=== PATIENT | male | born 1935 | race Caucasian/White ===

== ENCOUNTER 2016-11-05 09:58 | Emergency (ER) | payer MEDICARE ==
--- NOTE | 2016-11-05 10:35 | ER Document Report ---
ED General - General Chief Complaint: Other Stated Complaint: ABDOMINAL LEAK Time Seen by Provider: 11/05/16 10:11 Mode of Arrival: Ambulatory Information source: Patient TRAVEL OUTSIDE OF THE [place] IN LAST 30 DAYS: No - HPI Onset: Other - UNSURE Quality of pain: No pain Associated symptoms: None Exacerbated by: Denies Relieved by: Denies Recently seen / treated by doctor: Yes - SONOGRAM YESTERDAY (ROUTINE SURVEILLANCE) - Related Data Allergies/Adverse Reactions: No Known Allergies Allergy (Verified 11/05/16 10:01) Past Medical History - General Information source: Patient - Social History Smoking Status: Unknown if Ever Smoked Cigarette use (# per day): No Chew tobacco use (# tins/day): No Frequency of alcohol use: Occasional Drug Abuse: None Lives with: Spouse/Significant other Family History: Reviewed & Not Pertinent Patient has suicidal ideation: No Patient has homicidal ideation: No - Past Medical History Cardiac Medical History: Reports: Hx Hypertension, Other - AAA Pulmonary Medical History: Reports: None EENT Medical History: Reports: None Neurological Medical History: Reports: None Endocrine Medical History: Reports: None Renal/ Medical History: Reports: None. Denies: Hx Peritoneal Dialysis Malignancy Medical History: Reports None GI Medical History: Reports: None Musculoskeltal Medical History: Reports None Psychiatric Medical History: Reports: None Past Surgical History: Reports: Hx Herniorrhaphy, Hx Vascular Surgery - ENDOVASCULAR AAA REPAIR 2012 Review of Systems - Review of Systems Constitutional: No symptoms reported EENT: No symptoms reported Cardiovascular: No symptoms reported Respiratory: No symptoms reported Gastrointestinal: No symptoms reported Genitourinary: No symptoms reported Musculoskeletal: No symptoms reported Skin: No symptoms reported Neurological/Psychological: No symptoms reported Physical Exam - Vital signs Vitals: Temp Pulse Resp BP Pulse Ox 97.8 F 55 L 16 139/58 H 98 11/05/16 10:01 11/05/16 10:01 11/05/16 10:01 11/05/16 10:01 11/05/16 10:01 Interpretation: Normal. No: Hypotensive, Tachycardic, Tachypneic - General General appearance: Appears well, Alert In distress: None - HEENT Head: Normocephalic Eyes: Normal Conjunctiva: Normal Ears: Normal Nasal: Normal Mouth/Lips: Normal Mucous membranes: Normal Neck: Normal - Respiratory Respiratory status: No respiratory distress - Cardiovascular Rhythm: Regular - Abdominal Inspection: Normal Distension: No distension - Extremities General upper extremity: Normal inspection General lower extremity: Normal inspection. No: Edema - Neurological Neuro grossly intact: Yes Cognition: Normal Orientation: AAOx4 - Psychological Associated symptoms: Normal affect, Normal mood - Skin Skin Temperature: Warm Skin Moisture: Dry Skin Color: Normal Skin Turgor: Elastic Course - Re-evaluation Re-evalutation: 11/05/16 17:41 Late entry: Was reevaluated approximately 20 minutes prior to his departure. He remained asymptomatic with no complaints. Vital signs remained stable. He appears stable for transport to higher level of care. - Vital Signs Vital signs: Temp Pulse Resp BP Pulse Ox 97.8 F 55 L 18 139/58 H 100 11/05/16 10:01 11/05/16 10:01 11/05/16 13:02 11/05/16 13:02 11/05/16 13:02 - Laboratory Result Diagrams: 11/05/16 10:27 11/05/16 10:27 Laboratory results interpreted by me: 11/05/16 10:27 Potassium 5.8 H BUN 25 H Est GFR (Non-Af Amer) 58 L AST 16 L - Diagnostic Test Radiology reviewed: Image reviewed, Reports reviewed - Consults DR. VILLAREAL Time consulted: 10:50 Reason for consultation: 11/05/16 12:07 ADVICE RE: IMAGING STUDIES & REFERRAL DR. LATIF Time consulted: 11:20 Reason for consultation: 11/05/16 12:08 WILL MAKE ARRANGEMENTS FOR TRANSFER Discharge - Discharge Clinical Impression: S/P AAA (abdominal aortic aneurysm) repair Endoleak post endovascular aneurysm repair Qualifiers: Encounter type: initial encounter Qualified Code(s): T82.330A - Leakage of aortic (bifurcation) graft (replacement), initial encounter Condition: Good Disposition: [facility]
[2016-11-05 10:47] LABS: ABSOLUTE BASOPHILS # (AUTO) 0.1 10^3/uL (0.0-0.2); ABSOLUTE EOSINOPHILS # (AUTO) 0.2 10^3/uL (0.0-0.6); ABSOLUTE MONOCYTES (AUTO) 0.5 10^3/uL (0.1-1.4); ABSOLUTE NEUT (AUTO) 5.7 10^3/uL (1.7-8.2); BASOPHILS % (AUTO) 0.7 % (0-2); EOSINOPHILS % (AUTO) 2.5 % (0-6); HEMATOCRIT 42.6 % (37.9-51.0); HGB HCT DIFFERENCE -0.6; LYMPHOCYTES % (AUTO) 13.9 % (13-45); MEAN CORPUSCULAR HEMOGLOBIN 29.3 pg (27.0-33.4); MEAN CORPUSCULAR HGB CONC 32.7 g/dL (32.0-36.0); MEAN CORPUSCULAR VOLUME 90 fl (80-97); MONOCYTES % (AUTO) 7.3 % (3-13); RED BLOOD COUNT 4.76 10^6/uL (4.35-5.55); RED CELL DISTRIBUTION WIDTH 13.7 % (11.5-14.0); SEGMENTED NEUTROPHILS % (AUTO) 75.6 % (42-78); WHITE BLOOD COUNT 7.5 10^3/uL (4.0-10.5)
[2016-11-05 11:01] LABS: ALANINE AMINOTRANSFERASE 28 U/L (21-72); ALBUMIN 4.1 g/dL (3.5-5.0); ALKALINE PHOSPHATASE 72 U/L (38-126); ANION GAP 9 (5-19); ASPARTATE AMINO TRANSFERASE 16 U/L (17-59); BILIRUBIN,DIRECT 0.3 mg/dL (0.0-0.4); BILIRUBIN,TOTAL 0.7 mg/dL (0.2-1.3); BLOOD UREA NITROGEN 25 mg/dL (7-20); CALCIUM 8.7 mg/dL (8.4-10.2); CARBON DIOXIDE 23 mmol/L (22-30); CHLORIDE 105 mmol/L (98-107); CREATININE RESULT 1.21 mg/dL (0.52-1.25); GLUCOSE 101 mg/dL (75-110); POTASSIUM 5.8 mmol/L (3.6-5.0); SODIUM 137.1 mmol/L (137-145); TOTAL PROTEIN 6.8 g/dL (6.3-8.2)
--- NOTE | 2016-11-05 11:15 | RADIOLOGY REPORT (SQ) ---
EXAM DESCRIPTION: CTA ABDOMEN/PELVIS W WO COMPLETED DATE/TIME: 11/05/2016 10:48 am REASON FOR STUDY: ? LEAKING GRAFT, PER ULTRASOUND DONE @ [facility] 11/04 COMPARISON: Report of leaking graft TECHNIQUE: CT scan of the abdominal aorta extending to the iliac bifurcation performed with intraven ous contrast using helical scanning technique with dynamic intravenous contrast injection. Images rev iewed with lung, soft tissue, and bone windows. Reconstructed coronal and sagittal MPR images reviewe d. All images stored on PACS. Advanced 3D imaging as volume rendering, MIPS, SSD performed? no All CT scanners at this facility use dose modulation, iterative reconstruction, and/or weight based d osing when appropriate to reduce radiation dose to as low as reasonably achievable (ALARA). [facility]: Dose Right [facility]: CareDose [facility]: Dose Right [facility]: Teradose 4D [facility]: BostInno CONTRAST TYPE AND DOSE: contrast/concentration: Isovue 370.00 mg/ml; Total Contrast Delivered: 100.0 ml; Total Saline Delivered: 90.0 ml RENAL FUNCTION: Deferred per emergency department physician LIMITATIONS: None. FINDINGS: NON-CONTRASTED IMAGING: Not performed. POST-CONTRAST IMAGING: AORTA AND VESSELS: There is an aortic stent graft. Active contrast leakage identified at the level o f the bifurcation into the limbs of the graft. Left contrast collection is 2.5 cm. Right is 1.8 cm. The left contrast collection communicates with at no extra luminal vessel extending leftward from t he aortic lumen. Overall diameter of the aorta is 6.2 x 6.2 cm. More distally the iliac limbs of the graft are widely patent without evidence for extraluminal contra st. Renal arteries SMA and celiac axis are patent. LUNG BASES: No significant findings. No nodules or infiltrates. LIVER: Normal size. No masses or dilated ducts. SPLEEN: Normal size. No focal lesions. PANCREAS: No masses. No significant calcifications. No adjacent inflammation or peripancreatic fluid collections. Pancreatic duct not dilated. GALLBLADDER: No identified stones by CT criteria. No inflammatory changes to suggest cholecystitis. ADRENAL GLANDS: No significant masses or asymmetry. RIGHT KIDNEY AND URETER: No mass, calculi or urinary tract obstruction. LEFT KIDNEY AND URETER: No mass, calculi or urinary tract obstruction. RETROPERITONEUM: No retroperitoneal adenopathy, hemorrhage or masses. BOWEL AND PERITONEAL CAVITY: No masses or inflammatory changes. No free fluid or peritoneal masses. APPENDIX: Not visualized. ABDOMINAL WALL: No masses. No hernias. BONY STRUCTURES: No significant or acute findings. 3-D IMAGING: Not performed. OTHER: No other significant finding. IMPRESSION: Contrast is seen extra luminal to the aortic stent graft in the lower abdominal aorta wi th both a right and left-sided activity area of extravasation. The contrast on the left communicates with an extra aortic vessel. The exact site of leakage is not identified. Overall diameter of the aorta is 6.2 x 6.2 cm. TECHNICAL DOCUMENTATION: JOB ID: [id number] Quality ID # [id number]: Final reports with documentation of one or more dose reduction techniques (e.g., Au tomated exposure control, adjustment of the mA and/or kV according to patient size, use of iterative reconstruction technique) 2010 [employer]- All Rights Reserved
[2016-11-05 15:19] VITALS: BP 96/65
== END 2016-11-05 15:17 | disposition short-term general hospital (02) ==
LOC: ER 09:58
DX: T82.330A Leakage of aortic (bifurcation) graft (replacement), initial encounter (principal); Z98.890 Other specified postprocedural states
CPT/HCPCS: 36415; 74174; 80053; 85025; 86850; 86900; 86901; 99285

== ENCOUNTER → 2017-07-11 | Outpatient (CLI) | payer MEDICARE, OTHER ==
--- NOTE | 2017-07-11 14:45 | RADIOLOGY REPORT (SQ) ---
EXAM DESCRIPTION: CTA ABDOMEN/PELVIS W WO COMPLETED DATE/TIME: 07/11/2017 9:56 am REASON FOR STUDY: I71.4 ABDOMINAL AORTIC ANEURYSM, WITHOUT RUPTURE I71.4 ABDOMINAL AORTIC ANEURYSM, WITHOUT RUPTURE COMPARISON: CT ABDOMEN PELVIS 11/05/2016 TECHNIQUE: CT scan of the abdominal aorta extending to the bilateral common femoral bifurcations per formed with and without intravenous contrast using helical scanning technique with dynamic intravenou s contrast injection. Images reviewed with lung, soft tissue, and bone windows. Reconstructed coronal and sagittal MPR images reviewed. All images stored on PACS. Advanced 3D imaging as volume rendering, MIPS, SSD performed? yes All CT scanners at this facility use dose modulation, iterative reconstruction, and/or weight based d osing when appropriate to reduce radiation dose to as low as reasonably achievable (ALARA). [facility]: Dose Right [facility]: CareDose [facility]: Dose Right [facility]: Teradose 4D [facility]: aWhere CONTRAST TYPE AND DOSE: contrast/concentration: Isovue 370.00 mg/ml; Total Contrast Delivered: 58.0 ml; Total Saline Delivered: 80.0 ml RENAL FUNCTION: Creatinine 1.2 LIMITATIONS: There are radiopaque embolization coils along the periphery of the infrarenal abdominal aorta which causes streak artifact. FINDINGS: NON-CONTRASTED IMAGING: No significant renal or bladder calcifications. No other significa nt organ calcifications. POST-CONTRAST IMAGING: AORTA AND VESSELS: Patient has a abdominal aortic infrarenal aneurysm treated with an endograft. Sin ce the prior exam on 11/05/2016, embolization coils have been placed along the periphery of the endogr aft at about the level of the L4 vertebral body. These embolization coils cause streak artifact whic h partially obscures the abdominal aorta. Overall, the aneurysm sac is stable in size compared to 11/05/2016, measuring 6.4 cm AP x 5.7 cm trans verse. There is a 2.5 cm area of contrast enhancement within the aneurysm sac compatible with endoleak best shown on axial image 84. This is ventral to the iliac limbs of the graft, and is similar compared to the CT exam from 11/05/2016. A 2nd endoleak was seen, along the dorsal aspect of the iliac limbs of the graft. This is no longer identified on today's study. No extension of aneurysm into the proximal common iliac arteries. No in stent stenosis is identified . No retroperitoneal hemorrhage. Normal enhancement of the renal arteries bilaterally. Iliac arteries, common femoral arteries are unremarkable. There is no stenosis of the celiac artery or SMA. LUNG BASES: No significant findings. No nodules or infiltrates. LIVER: Normal size. No significant masses or dilated ducts. Several small less than 5 mm left lobe liver cysts are present SPLEEN: Normal size. No focal lesions. PANCREAS: No masses. No significant calcifications. No adjacent inflammation or peripancreatic fluid collections. Pancreatic duct not dilated. 4 cm periampullary duodenum diverticulum. GALLBLADDER: No identified stones by CT criteria. No inflammatory changes to suggest cholecystitis. ADRENAL GLANDS: No significant masses or asymmetry. RIGHT KIDNEY AND URETER: No mass, calculi or urinary tract obstruction. LEFT KIDNEY AND URETER: No mass, calculi or urinary tract obstruction. 2.5 cm left lower pole renal cortical cyst RETROPERITONEUM: No retroperitoneal adenopathy, hemorrhage or masses. BOWEL AND PERITONEAL CAVITY: No oral contrast. No CT evidence of bowel obstruction. There are desce nding and sigmoid colon diverticuli without CT signs of acute diverticulitis. APPENDIX: Not identified. ABDOMINAL WALL: Old intact left inguinal hernia repair PELVIS: BONY STRUCTURES: Degenerative disc changes and facet arthropathy lower lumbar spine 3-D IMAGING: Confirms the above findings. OTHER: No other significant finding. IMPRESSION: Stable size of the infrarenal abdominal aortic aneurysm compared to 11/05/2016. Persiste nt endoleak along the ventral aspect of the endograft hardware within the aneurysm sac. TECHNICAL DOCUMENTATION: JOB ID: [id number] Quality ID # [id number]: Final reports with documentation of one or more dose reduction techniques (e.g., Au tomated exposure control, adjustment of the mA and/or kV according to patient size, use of iterative reconstruction technique) 2010 [employer]- All Rights Reserved Reading location - IP/workstation name: [facility]-[id number]
== END ==
LOC: RAD 10:14
PROVIDERS: ATTEND Surgery Vascular Surgery
DX: I71.4 Abdominal aortic aneurysm, without rupture (principal)
CPT/HCPCS: 74174; 82565